=== PATIENT | male | born 1970 | race Caucasian/White ===

== ENCOUNTER 2016-12-08 09:36 | Emergency (ER) | payer BC ==
--- NOTE | 2016-12-08 10:33 | ERNOTE ---
Lower Extremity HPI - Narrative Date of Service: 12/08/16 - General Lower Extremities Pain: leg: right - post calf Time Seen by Provider: 12/08/16 10:21 Source: patient Exam Limitations: no limitations - Immun/Allergies/Home Medications Immunizations: IMMUNIZATION HX Immunizations Up to Date Yes History of Influenza Vaccine Yes Allergies/Adverse Reactions: Allergies Allergy/AdvReac Type Severity Reaction Status Date / Time No Known Drug Allergies Allergy Unknown Verified 12/08/16 10:25 Home Medications: HOME MEDICATIONS Ibuprofen 600 mg PO BID 11/28/16 [Last Taken Unknown] Rivaroxaban [Xarelto] 15 mg PO BID #60 tab 12/08/16 [Last Taken Unknown] - History of Present Illness Narrative: Pt. comes in with c/o R calf pain and swelling that radiates to R inner thigh for a week to three days. Pt. recently had a R lateral lis franc fracture and was in a boot for three weeks and took off the boot a week ago. Pt. denies any SOB, CP, NVD, alleviating factors but does state that he has had a low grade temperature and movement exacerbates the pain. Pt. discussed with the orthopedic physician that he saw for his foot and was told to come to the ER. Review of Systems - Review of Systems Constitutional: Present: no symptoms reported. Absent: recent illness, fever, chills, weakness, fatigue, malaise EYE: Present: no symptoms reported ENT: Present: no symptoms reported Respiratory: Present: no symptoms reported. Absent: shortness of breath, cough , wheezing Cardiology: Present: no symptoms reported. Absent: chest pain, palpitations, edema Genitourinary: Present: no symptoms reported Musculoskeletal: Present: muscle pain - R calf, R inner thigh, R post knee. Absent: back pain, joint pain Skin: Present: no symptoms reported Neurological: Present: no symptoms reported. Absent: headache, dizziness/light- headedness, numbness, tingling All Other Systems: All systems neg except as marked - Patient's Past Medical History Patient History - Medical: No pertinent hx Patient History - Cardiac/Respiratory: No pertinent hx Patient History - Cancer: No Hx of Cancer Patient History - Surgical Procedures: T & A Patient History - Other: None - Social History Living Situations: home Psych History: No pertinent hx Smoking Status: Current every day smoker Have you smoked in the past 12 months: Yes - Immunizations Immunizations Up to Date: Yes History of Influenza Vaccine: Yes Physical Exam - Physical Exam General Appearance: Present: wd/wn, alert, no apparent distress Eye Exam: Normal inspection: bilateral, PERRL: bilateral, EOMI: bilateral Respiratory: Present: no respiratory distress, normal breath sounds, no accessory muscle use, chest nontender, lungs clear Cardiovascular/Chest: Present: regular rate, rhythm, no murmur, normal peripheral pulses Back Exam: Present: normal inspection, normal range of motion, no CVA tenderness , no vertebral tenderness Extremity Exam: Present: normal range of motion, calf tenderness, extremity edema - trace edema knee to foot. Absent: bony tenderness, joint redness, joint swelling Neurological Exam: Present: alert, oriented, normal mood/affect, no motor/ sensory deficits, shake backboard notcher II-XII nml as tested, normal cerebellar test Skin Exam: Present: normal color, warm/dry. Absent: pallor, skin rash ED Progress - Date and Time Seen: Date and Time: 12/08/16 13:[address] Navarro and she recommends sending pt. renato rocha on xarelto and will follow up with pt. this week outpatient. Pt. educated to return if he feels SOB or develops chest pain. - Results and Orders Patient's Lab Results:: I have reviewed the patient's lab results. - Vital Signs Patient's Vital Signs:: I have reviewed the patient's vital signs. Vital Signs: Vital Signs 12/08/16 10:19 Temperature 37.4 C Blood Pressure 128/91 O2 Sat by Pulse 98 Oximetry - CT/Ultrasound CT/Ultrasound Narrative: US with noncompressable clot in femoral, popliteal, post tibial and peroneal veins. CT notable for subsegmental Pleural effusion - Progress/Reassessment Chief Complaint: Lower Extremity Pain/ Injury Progress:: Unchanged Departure Clinical Impression: Pleural effusion DVT (deep venous thrombosis) Qualifiers: DVT location: lower extremity Affected thrombotic vein of extremity: unspecified vein of extremity Chronicity: acute Laterality: right Qualified Code (s): I82.401 - Acute embolism and thrombosis of unspecified deep veins of right lower extremity - Departure Disposition: Home self-care Condition: Good Instructions: Deep Vein Thrombosis, Pleural Effusion Additional Instructions: Please follow up with primary provider in 2-3 days. Prescriptions: Rivaroxaban [Xarelto] 15 mg PO BID #60 tab
[2016-12-08 10:39] LABS: Hematocrit 40.2 % (42.0-52.0); Hemoglobin 13.7 gm/dL (13.5-18.0); Mean Cell Volume 94.6 fl (78-100); Mean Corpuscular Hemoglobin 32.2 pg (27-31); Mean Corpuscular Hgb Conc 34.1 g/dl (32-36); Neutrophil # 4.3 K/mm3 (1.3-6.0); Neutrophil % 53.6 % (42-75.0); Platelet Count 161 K/mm3 (150-450); Red Blood Count 4.25 M/mm3 (4.7-6.0)
[2016-12-08 10:53] LABS: Albumin * 3.7 gm/dl (3.4-5.0); Anion Gap 16.5 mmol/L (6.8-13.8); BUN/Creatinine Ratio 23.4 (9.0-21.6); Bilirubin, Total 0.4 mg/dL (0.0-1.1); Ca. Corrected For Albumin 9.3 mg/dL (8.4-10.2); Calcium * 9.4 mg/dL (7.9-10.9); Carbon Dioxide 26.6 mmol/L (24-32.6); Potassium 4.1 mmol/L (3.4-4.6); Total Protein 7.6 gm/dL (6.2-8.2)
[2016-12-08] MEDS ORDERED: ENOXAPARIN SODIUM 80 MG/0.8 ML DISP.SYRIN SC ONE ×2 (11:47→12:00)
[2016-12-08 13:33] VITALS: BP 121/82
[2016-12-08] MEDS ORDERED: RIVAROXABAN 15 MG TABLET PO ONE (14:00)
== END 2016-12-08 13:34 | disposition home or self-care (01) ==
LOC: ER 09:36
DX: I82.401 Acute embolism and thrombosis of unspecified deep veins of right lower extremity (principal); J90 Pleural effusion, not elsewhere classified; F17.200 Nicotine dependence, unspecified, uncomplicated

== ENCOUNTER 2017-02-02 20:45 | Emergency (ER) | payer BC ==
[2017-02-02 20:55] VITALS: BP 137/66
[2017-02-02] MEDS ORDERED: oxyCODONE HCL/ACETAMINOPHEN 1 TAB TABLET PO ONE (21:07)
[2017-02-02] MEDS ORDERED: oxyCODONE HCL/ACETAMINOPHEN 1 TAB TABLET ONE (21:10)
--- NOTE | 2017-02-02 21:12 | ERNOTE ---
ENT HPI Date of Service: 02/02/17 Presenting Symptoms: dental pain Time Seen by Provider: 02/02/17 21:01 Source: patient, RN notes reviewed Exam Limitations: no limitations - Immun/Allergies/Home Medications Immunizations: IMMUNIZATION HX Immunizations Up to Date Yes History of Influenza Vaccine Yes Allergies/Adverse Reactions: Allergies Allergy/AdvReac Type Severity Reaction Status Date / Time No Known Drug Allergies Allergy Unknown Verified 12/08/16 10:25 Home Medications: HOME MEDICATIONS Ibuprofen 600 mg PO BID 11/28/16 [Last Taken Unknown] Rivaroxaban [Xarelto] 15 mg PO BID #60 tab 12/08/16 [Last Taken Unknown] Penicillin V Potassium [Pen-Vee K] 500 mg PO Q8H 02/02/17 [Last Taken Unknown] oxyCODONE HCL/ACETAMINOPHEN [Oxycodone-Acetaminophen 5-325] 1 each PO Q6H PRN # 16 tablet 02/02/17 [Last Taken Unknown] - Pain Score Pain Score #1 Pain Score: 10 - History of Present Illness Narrative: Justice is a 46-year-old male who presents to the emergency Department by private vehicle for dental pain. He began having pain in his right upper posterior molar 3 days ago. He saw his dentist 2 days ago and was put on Pen- Vee K. He is supposed to follow up with his dentist on Saturday. He began having severe pain this evening. He has taken hydrocodone without improvement. He is unable to talk without holding his finger over the tooth. ENT Location: Present: dental Prearrival Treatment: Present: prescription meds Associated Symptoms - ENT: Reports: facial pain/swelling, tooth pain. Denies: fever, malaise, sore throat, nasal congestion/drainage, jaw swelling, change in hearing, ear drainage, headache Prior Treament: Reports: recently seen, currently on antibiotics Review of Systems - Review of Systems Constitutional: Absent: fever, chills EYE: Absent: eye pain, vision changes ENT: Present: See HPI Respiratory: Present: no symptoms reported Cardiology: Present: no symptoms reported Gastrointestinal/Abdominal: Absent: nausea, vomiting Genitourinary: Present: no symptoms reported Musculoskeletal: Absent: muscle pain, neck pain Skin: Absent: rash, lesions, lumps, change in color Neurological: Absent: headache, dizziness/light-headedness Endocrine: Present: no symptoms reported Hematologic/Lymphatic: Present: no symptoms reported Psych: Present: no symptoms reported - Patient's Past Medical History Patient History - Medical: No pertinent hx Patient History - Cardiac/Respiratory: Deep Vein Thrombosis Patient History - Cancer: No Hx of Cancer Patient History - Surgical Procedures: T & A, Orthopedic Patient History - Other: None - Social History Living Situations: significant other Abuse History: No History of abuse Psych History: No pertinent hx Smoking Status: Current every day smoker Have you smoked in the past 12 months: Yes Alcohol Use: occasionally Drug Use: none - Immunizations Immunizations Up to Date: Yes History of Influenza Vaccine: Yes Physical Exam - Physical Exam General Appearance: Present: wd/wn, alert, mild distress Head Exam: Present: tenderness - Right upper jaw/cheek. Absent: swelling Ears, Nose, Throat: Present: normal except - - Right upper posterior molar decayed and tender to palpation, no surrounding gingival inflammation or focal abscess Neck: Present: normal inspection, nontender, supple. Absent: lymphadenopathy (R ), lymphadenopathy (L) Respiratory: Present: no respiratory distress, normal breath sounds, no accessory muscle use Cardiovascular/Chest: Present: regular rate, rhythm, no murmur Neurological Exam: Present: alert, oriented, normal mood/affect, no motor/ sensory deficits Skin Exam: Present: normal color, warm/dry ED Progress - Vital Signs Patient's Vital Signs:: I have reviewed the patient's vital signs. Vital Signs: Vital Signs 02/02/17 20:49 Temperature 37.3 C Pulse Rate 67 Respiratory 14 Rate Blood Pressure 137/66 O2 Sat by Pulse 100 Oximetry - Progress/Reassessment Chief Complaint: Dental Problem Progress:: Unchanged Departure Clinical Impression: Pain due to dental caries - Departure Disposition: Home Follow Up Needed Condition: Stable Instructions: Dental Caries, Form - Excuse from Work, School, or Physical Activity Additional Instructions: Continue your antibiotic Try using a temporary filling See your dentist as scheduled Referrals: Maria De Jesus Navarro DO [Primary Care Provider] - Prescriptions: oxyCODONE HCL/ACETAMINOPHEN [Oxycodone-Acetaminophen 5-325] 1 each PO Q6H PRN # 16 tablet PRN Reason: Pain
== END 2017-02-02 21:17 | disposition home or self-care (01) ==
LOC: ER 20:45
DX: K02.9 Dental caries, unspecified (principal); Z86.718 Personal history of other venous thrombosis and embolism; Z79.01 Long term (current) use of anticoagulants; F17.200 Nicotine dependence, unspecified, uncomplicated